=== PATIENT | male | born 1965 | race Caucasian/White ===

== ENCOUNTER 2017-04-10 05:10 | Emergency (ER) | payer OTHER ==
[~2017-04-10] VITALS: Ht 167.6 cm; Wt 101.8 kg
[~2017-04-10 05:10] MED LIST: LOMO PO; PROM6.257 PO; Z.0.NO CURRENT MEDS; ZITH250T PO; ZOFR4TAB3 SL
[2017-04-10 05:19] VITALS: BP 201/93; PULSE 93; RESP 14; TEMP 97.2; O2SAT 97
[2017-04-10] MEDS ORDERED: ATOR10TA15 PO (05:30)
[2017-04-10] MEDS ORDERED: ATEN25TA PO (05:30)
--- NOTE | 2017-04-10 05:39 | PD ---
HPI Chief Complaint: GI Complaint Time Seen by Provider: 05:15 Travel History International Travel<30 days: No Contact w/Intl Traveler<30days: No Traveled to known affect area: No History of Present Illness HPI 51-year-old male complains of headache, coughing congestion, nausea vomiting, fever, body ache. Patient states the symptoms started about 4 days ago. Patient states that the cough is persistent and nonproductive. Patient denies any chest pain or shortness of breath. Patient states he has intermittent abdominal cramping. Patient states that he is unable to keep anything down for the past 2 days. PFSH Past Medical History Arthritis: No Asthma: No Autoimmune Disease: No Blood Disorders: No Anxiety: Yes Heart Rhythm Problems: No Cancer: No Cardiovascular Problems: No High Cholesterol: Yes Chemotherapy: No Chest Pain: No Congestive Heart Failure: No COPD: No Diabetes: No Diminished Hearing: No Endocrine: No GERD: No Glaucoma: No Genitourinary: No Hepatitis: No Hiatal Hernia: No Hypertension: Yes Musculoskeletal: No Neurologic: Yes Psychiatric: Yes Respiratory: No Myocardial Infarction: No Radiation Therapy: No Sickle Cell Disease: No Sleep Apnea: No Thyroid Disease: No Ulcer: No Influenza Vaccination: No Past Surgical History Abdominal Surgery: Yes (REMOVAL OF HEMORRHOIDS) AICD: No Cardiac Surgery: No Ear Surgery: No Endocrine Surgery: No Eye Surgery: No Genitourinary Surgery: Yes (HEMORROIDS) Gynecologic Surgery: No Oral Surgery: No Pacemaker: No Thoracic Surgery: No Other Surgery: Yes Social History Alcohol Use: Yes ("ONCE IN A BLUE VEGA") Tobacco Use: No Substance Use: No Allergies-Medications (Allergen,Severity, Reaction): Coded Allergies: No Known Allergies (Verified Adverse Reaction, Unknown, 04/10/17) Reported Meds & Prescriptions Reported Meds & Active Scripts Active Zithromax Z-Avtar (Azithromycin) 250 Mg Dspk 250 Mg PO DIRECTED 500 MG (2 tabs) day 1, then 1 tab days 2-5. [Phenergan W Codein] 10 Ml PO Q8HR Zofran Odt (Ondansetron Odt) 4 Mg Tab 4 Mg SL Q6HR PRN Reported Atenolol 25 Mg Tab 25 Mg PO DAILY Atorvastatin (Atorvastatin Calcium) 10 Mg Tab 10 Mg PO HS Review of Systems General / Constitutional: Positive: Fever Eyes: No: Visual changes HENT: No: Headaches Cardiovascular: No: Chest Pain or Discomfort Respiratory: Positive: Cough, No: Shortness of Breath Gastrointestinal: Positive: Nausea, Vomiting, Abdominal Pain Genitourinary: No: Dysuria Musculoskeletal: No: Pain Skin: No Rash Neurologic: No: Weakness Psychiatric: No: Depression Endocrine: No: Polydipsia Hematologic/Lymphatic: No: Easy Bruising Physical Exam Narrative GENERAL: Well-nourished, well-developed patient. SKIN: Focused skin assessment warm/dry. HEAD: Normocephalic. EYES: No scleral icterus. No injection or drainage. TM: Clear. Throat: Mild erythematous. NECK: Supple, trachea midline. No JVD or lymphadenopathy. CARDIOVASCULAR: Regular rate and rhythm without murmurs, gallops, or rubs. RESPIRATORY: Breath sounds equal bilaterally. No accessory muscle use. GASTROINTESTINAL: Abdomen soft, non-tender, nondistended. MUSCULOSKELETAL: No cyanosis, or edema. BACK: Nontender without obvious deformity. No CVA tenderness. Data Data Last Documented VS Vital Signs Date Time Temp Pulse Resp B/P (MAP) Pulse Ox O2 Delivery O2 Flow Rate FiO2 04/10/17 06:06 95 18 191/91 (124) 94 Room Air 04/10/17 05:19 97.2 Orders Orders Sodium Chlor 0.9% 1000 Ml Inj (Ns 1000 M (04/10/17 05:45) Ondansetron Inj (Zofran Inj) (04/10/17 05:45) Ketorolac Inj (Toradol Inj) (04/10/17 05:45) Complete Blood Count With Diff (04/10/17 05:32) Basic Metabolic Panel (Bmp) (04/10/17 05:32) Influenzae A/B Antigen (04/10/17 05:32) Chest, Single Ap (04/10/17 05:32) Iv Access Insert/Monitor (04/10/17 05:32) Labs Laboratory Tests Test 04/10/17 05:35 White Blood Count 7.7 TH/MM3 Red Blood Count 5.60 MIL/MM3 Hemoglobin 15.6 GM/DL Hematocrit 47.2 % Mean Corpuscular Volume 84.3 FL Mean Corpuscular Hemoglobin 27.9 PG Mean Corpuscular Hemoglobin Concent 33.1 % Red Cell Distribution Width 12.3 % Platelet Count 191 TH/MM3 Mean Platelet Volume 8.9 FL Neutrophils (%) (Auto) 88.8 % Lymphocytes (%) (Auto) 3.1 % Monocytes (%) (Auto) 6.1 % Eosinophils (%) (Auto) 0.2 % Basophils (%) (Auto) 1.8 % Neutrophils # (Auto) 6.9 TH/MM3 Lymphocytes # (Auto) 0.2 TH/MM3 Monocytes # (Auto) 0.5 TH/MM3 Eosinophils # (Auto) 0.0 TH/MM3 Basophils # (Auto) 0.1 TH/MM3 CBC Comment DIFF FINAL Differential Comment Blood Urea Nitrogen 12 MG/DL Creatinine 1.40 MG/DL Random Glucose 141 MG/DL Calcium Level 8.8 MG/DL Sodium Level 134 MEQ/L Potassium Level 4.1 MEQ/L Chloride Level 105 MEQ/L Carbon Dioxide Level 20.2 MEQ/L Anion Gap 9 MEQ/L Estimat Glomerular Filtration Rate 54 ML/MIN MDM Medical Decision Making Medical Screen Exam Complete: Yes Emergency Medical Condition: Yes Interpretation(s) Last Impressions Chest X-Ray 04/10/17 0532 Signed Impressions: Service Date/Time: Monday, April 10, 2017 05:39 - CONCLUSION: No acute cardiopulmonary abnormality is identified. Pa Shelby MD Influenza AB antigen negative. CBC within normal limit. Workup 20.2. Creatinine 1.4. Glucose 141. Differential Diagnosis Differential diagnosis including viral syndrome, bronchitis, pneumonia, gastroenteritis, dehydration, electrolyte imbalance. Narrative Course 51-year-old male with fever chills, coughing congestion, nausea vomiting and abdominal pain. Normal saline solution 1 L IV bolus. Toradol 30 mg IV. Zofran 4 mg IV. Diagnosis Primary Impression: Bronchitis Additional Impression: Viral syndrome Patient Instructions: General Instructions Additional Instructions: Take medications as directed. Tylenol ibuprofen for fever aching pain. Encourage by mouth fluid. Follow-up with personal physician. Return if persistent problem or worse. Med/Other Pt SpecificInfo: Prescription(s) given Scripts Azithromycin (Zithromax Z-Avtar) 250 Mg Dspk 250 MG PO DIRECTED for Infection, #1 DSPK 0 Refills 500 MG (2 tabs) day 1, then 1 tab days 2-5. Prov: Gregorio Fuller MD 04/10/17 [Phenergan W Codein] No Conflict Check 10 ML PO Q8HR for Cough, #120 Prov: Gregorio Fuller MD 04/10/17 Ondansetron Odt (Zofran Odt) 4 Mg Tab 4 MG SL Q6HR Y for Nausea/Vomiting, #10 TAB 0 Refills Prov: Gregorio Fuller MD 04/10/17 Disposition: 01 DISCHARGE HOME Condition: Stable Gregorio Fuller MD Apr 10, 2017 05:39
[2017-04-10] MEDS ORDERED: KETOROLAC TROMETHAMINE 30 MG/ML (IVP) VIAL IV PUSH ONE (05:45)
[2017-04-10] MEDS ORDERED: ONDANSETRON HCL 4 MG/2 ML VIAL IV PUSH ONE (05:45)
[2017-04-10] MEDS ORDERED: SODIUM CHLOR 0.9% 1000 ML INJ 1,000 ML IV ONE (05:45)
[2017-04-10 05:47] LABS: AUTOMATED NEUTROPHIL # 6.9 TH/MM3 (1.8-7.7); BASOPHIL # 0.1 TH/MM3 (0-0.2); BASOPHIL % 1.8 % (0.0-2.0); EOSINOPHIL % 0.2 % (0.0-4.0); HEMATOCRIT 47.2 % (39.0-51.0); HEMOGLOBIN 15.6 GM/DL (13.0-17.0); LYMPH % 3.1 % (9.0-44.0); LYMPHOCYTE # 0.2 TH/MM3 (1.0-4.8); MEAN CELL VOLUME 84.3 FL (80.0-100.0); MEAN CORPUSCULAR HEMOGLOBIN 27.9 PG (27.0-34.0); MEAN CORPUSCULAR HGB CONC 33.1 % (32.0-36.0); MEAN PLATELET VOLUME 8.9 FL (7.0-11.0); MONO % 6.1 % (0.0-8.0); MONOCYTE # 0.5 TH/MM3 (0-0.9); NEUT % 88.8 % (16.0-70.0); PLATELET COUNT 191 TH/MM3 (150-450); RED CELL DISTRIBUTION WIDTH 12.3 % (11.6-17.2); WHITE BLOOD COUNT 7.7 TH/MM3 (4.0-11.0)
[2017-04-10 05:55] LABS: CALCIUM 8.8 MG/DL (8.5-10.1)
[2017-04-10 05:56] LABS: BICARBONATE 20.2 MEQ/L (21.0-32.0)
[2017-04-10 05:59] LABS: CREATININE 1.4 MG/DL (0.60-1.30)
[2017-04-10 06:06] VITALS: BP 191/91; PULSE 95; RESP 18; O2SAT 94
--- NOTE | 2017-04-10 06:06 | RADRPT ---
EXAM DATE/TIME: 04/10/2017 05:39 [facility] COMPARISON: No previous studies available for comparison. INDICATIONS : Cough, congestion. MEDICAL HISTORY : None. SURGICAL HISTORY : None. ENCOUNTER: Initial ACUITY: 3 days PAIN SCORE: 0/10 LOCATION: Bilateral chest FINDINGS: Portable AP view of the chest demonstrates a normal-sized cardiac silhouette. No effusion, consolidat ion, or pneumothorax is visualized. The bones and soft tissues demonstrate no acute abnormality. CONCLUSION: No acute cardiopulmonary abnormality is identified. Pa Shelby MD on April 10, 2017 at 6:04 Board Certified Radiologist. This report was verified electronically.
[2017-04-10] MEDS ORDERED: ZOFR4TAB3 SL (06:07)
[2017-04-10] MEDS ORDERED: PHENERGAN W CODEIN PO (06:07)
[2017-04-10] MEDS ORDERED: ZITHTAB PO (06:07)
== END 2017-04-10 06:23 | disposition home or self-care (01) ==
LOC: PHED 05:10
DX: J40 Bronchitis, not specified as acute or chronic (principal); B34.9 Viral infection, unspecified; E78.00 Pure hypercholesterolemia, unspecified; I10 Essential (primary) hypertension
CPT/HCPCS: 71045; 80048; 85025; 87804; 96361; 96374; 96375; 99284; J1885; J2405; J7030